=== PATIENT | female | born 1950 | race Caucasian/White ===

== ENCOUNTER 2016-03-27 12:09 | Day surgery (SDC) | payer BC ==
--- NOTE | ~2016-03-27 | OP ---
Record Of Operation [place] [id number] [facility] [place]. [address] NAME: MARLYS GOMES : 50 STATUS : REG [facility] [place] PAT#: [id number] AGE: 65 ADM/REG DATE : 03/27/16 MR#: [id number] REPORT SERV DATE: 03/28/16 DICTATED BY: YOLANDA RUIZ DATE: 03/27/16 REPORT STATUS : Draft TRANSCRIBED BY: MODL DATE: 03/27/16 DATE OF PROCEDURE: 03/27/2016 PREOPERATIVE DIAGNOSIS: 1. Malignant melanoma of the right distal arm above the elbow. This is a superficial spreading type, Félix's level 4, with a thickness of 1.67 mm. Epithelioid and spindle cell with mitotic rate of 3 mitoses per square mm, no ulceration, and associated dysplastic nevus. 2. History of malignant melanoma of the earliest stage, right distal forearm in the past. OPERATION: 1. Wide radical resection of malignant melanoma of the right distal arm lateral aspect above the elbow. 2. Intraoperative lymphatic mapping, injection of blue dye Lymphazurin. 3. Identification and excision of sentinel nodes of the right axilla x4. 4. Repair of soft tissue defect in layers. POSTOPERATIVE DIAGNOSES: 1. Malignant melanoma of the right distal arm above the elbow. This is a superficial spreading type, Félix's level 4, with a thickness of 1.67 mm. Epithelioid and spindle cell with mitotic rate of 3 mitoses per square mm, no ulceration, and associated dysplastic nevus. 2. History of malignant melanoma of the earliest stage, right distal forearm in the past. SURGEON: Yolanda Ruiz M.D. ASSOCIATED MEDICAL PROBLEMS: History of rheumatoid arthritis. APPLICATION SUPPORT TECHNICIAN: . ANESTHESIA: General via LMA. COMPLICATIONS: None. ESTIMATED BLOOD LOSS: Minimal. COUNTS: Correct. POSITION: Supine with the right arm extended. A time-out protocol enforced at the beginning. Time-out protocol enforced exit at the end of the case. SPECIMENS TO PATHOLOGY: 1. Skin and soft tissues of the right arm lateral aspect, up distal above the elbow area measures approximately 14 x 5 cm and include the skin and the underlying subcutaneous Record Of Operation [address] [place] [address] NAME: MARLYS GOMES : 50 STATUS : REG [facility] [place] PAT#: [id number] AGE: 65 ADM/REG DATE : 03/27/16 MR#: [id number] REPORT SERV DATE: 03/28/16 DICTATED BY: YOLANDA RUIZ DATE: 03/27/16 REPORT STATUS : Draft TRANSCRIBED BY: MODL DATE: 03/27/16 tissue. 2. [place] nodes of the right axilla x4. Counts documented. Informed consent obtained. EDUCATION: The patient was educated in management of melanoma. Preoperative evaluation including history and physical, laboratory analysis, and chest x-ray within normal limits. Medical clearance obtained from Dr. Remedios Andrews, primary care physician. We have planned to do a CT scan of chest, abdomen, and pelvis as initial staging. However, due to logistics that the patient preferred to proceed with wide excision and sentinel node biopsy as the initial step and that was scheduled today and accomplished today. We have deferred the CT at a later time after these steps have been completed. A preoperative lymphoscintigraphy was performed. Therefore, imaging was reviewed and shows a sentinel node with other secondary nodes in the area. She was identified preoperatively. Informed consent was signed. History and physical was updated. SUMMARY: She was brought to the operating room, placed supine, patient identified, procedure confirmed. A time-out protocol enforced prophylactic IV antibiotics given. The area of the melanoma was injected intradermally with 1 mL of isosulfan blue. We plan an elliptical longitudinal skin incision with mesh or approximately 2 cm margins in all directions taking into account the prior risk of the area to be resected measures approximately 14 x 5 cm and include the minimum of 2 cm margins in all directions. We initially performed the lymphoscintigraphy and the sentinel node biopsies. The right axilla was interrogated with the gamma probe, sentinel node was located. Radial activity detected. An incision made at level 1 into the axilla carried down into the underlying subcutaneous tissues and through the deeper planes of the axilla progressively, sequentially, a total of 4 separate sentinel nodes were identified. The main sentinel node was consistent with the preoperative lymphoscintigraphy with a height of radioactivity count. This node was enlarged measuring approximately minimum of 2.5 cm in diameter, appeared to be otherwise unremarkable but enlarged. This node was dissected free, isolated, and harvested intact. The lymphatic and blood vessels associated with these nodes were divided between hemoclips. The node was sent to pathology for analysis, permanent section. Separate, identifiable, mildly enlarged secondary sentinel nodes were identified, dissected free, harvested intact, and sent to pathology for analysis. All of them within level 1 or at the transition between level 1 and level 2 with any other suspicious features by inspection and palpation. Record Of Operation [place] [address] [place]. [address] NAME: MARLYS GOMES : 50 STATUS : REG [facility] [place] PAT#: [id number] AGE: 65 ADM/REG DATE : 03/27/16 MR#: [id number] REPORT SERV DATE: 03/28/16 DICTATED BY: YOLANDA RUIZ DATE: 03/27/16 REPORT STATUS : Draft TRANSCRIBED BY: KRISTY DATE: 03/27/16 The nodes contained blue discoloration as well as a pertinent significant radioactivity that was documented. The lymphatic vessels in the axilla were controlled with hemoclips and occasional ligatures of 3-0 Vicryl. After all 4 sentinel nodes were identified and removed, the axilla was inspected and palpated. No evidence of any other pathological adenopathy by inspection and palpation. The background count was minimal. The field was irrigated with normal saline solution. There was no evidence of any active bleeding. A small amount of hydrogen peroxide was also used as well as Arixtra to improve hemostasis. The dermis was approximated with interrupted sutures of 3-0 Vicryl. The skin with 3-0 Vicryl subcuticular. Sterile dressings were applied. We then proceeded to performing the wide elliptical excision, a minimum of 2 cm margins were measured in all directions. The incision was carried down through the full thickness of the underlying subcutaneous tissue and the superficial aponeurosis. The muscle was not disrupted. In a circumferential fashion, following the outline of the incision, the tissues were dissected from superficial to deep. Small superficial nerve branches were dissected free and preserved intact. A couple of branches going directly under the tumor were sacrificed. These were superficial small branches. Small veins were also divided and controlled, some of them with ligatures of 3-0 Vicryl, the other ones with hemoclips. The specimen was then progressively and slowly from the underlying muscles without any difficulties. All the other nerve branches in the area were preserved intact. The specimen was removed, oriented, labeled, and sent to pathology for analysis. The dermis was then approximated with multiple interrupted sutures of 3-0 Vicryl and 2 Vicryl interrupted. The skin with interrupted sutures of 3-0 nylon. Sterile dressings were applied. We used a silver impregnated occlusive dressing. The field was irrigated with 0.25% Marcaine for postoperative pain control. In both areas. We wrapped the arm with an Bart bandage. She has tolerated the procedure well. No complications. She was awakened at the end of anesthesia, remains in stable condition. An exit time-out protocol was enforced. No complications. Counts correct. The plan is to discharge her home and await final path report to make long-term therapeutic recommendations. She understood the benefits of long-term dermatological screening for life. was informed in detail. Record Of Operation [address] [place]. [address] NAME: GOMESARTISMARLYS HADLEY : 50 STATUS : REG [facility] [place] PAT#: [id number] AGE: 65 ADM/REG DATE : 03/27/16 MR#: [id number] REPORT SERV DATE: 03/28/16 DICTATED BY: YOLANDA RUIZ DATE: 03/27/16 REPORT STATUS : Draft TRANSCRIBED BY: KRISTY DATE: 03/27/16 KRISTOPHER/KRISTY Yolanda Ruiz M.D. / [id number] CC: Zeinab Solano M.D. Elizabeth M Simpson, M.D. Philip Andrews, NP
[~2016-03-27 12:09] MED LIST: AMIT50 PO; ATEN50 PO; HYDROCHLOROT12.5 MG PO; KLONO1 PO; LEXAPRO10 PO; LIPITOR40 PO; NEUR300 PO; PLAQ200B PO; PRILOSEC40 MG PO; RELPAX40 MG PO; ZANAFLEX 4 MG TA4 MG PO
[2016-03-27 16:52] LABS: HEMOGLOBIN 12.1 g/dL (12.0-16.0)
[2016-03-27 16:57] LABS: HEMATOCRIT 35.6 % (36.0-48.0)
[2016-03-27 17:03] LABS: BUN (BLOOD UREA NITROGEN) 10 MG/DL (6-23); CALCIUM, SERUM 8.6 MG/DL (8.5-10.4); CHLORIDE, SERUM 106 MMOL/L (96-112); CO2 (CARBON DIOXIDE) 27 MMOL/L (24-34); CREATININE 0.66 MG/DL (0.55-1.02); GFR AFRICAN AMERICAN 107 ML/MIN (>=60); GFR NON AFRICAN AMERICAN 93 ML/MIN (>=60); GLUCOSE, SERUM 85 MG/DL (60-99); POTASSIUM, SERUM 3.3 MMOL/L (3.5-5.3); SODIUM, SERUM 143 MMOL/L (135-148)
== END 2016-03-27 23:59 | disposition home or self-care (01) ==
LOC: SDC 12:09
PROVIDERS: Surgery
PROC: 07B50ZZ Excision of Right Axillary Lymphatic, Open Approach (ICD-10-PCS; 2016-03-27)
PROC: 0JQG0ZZ Repair Right Lower Arm Subcutaneous Tissue and Fascia, Open Approach (ICD-10-PCS; principal; 2016-03-27 16:45)
PROC: 0XB Anatomical Regions, Upper Extremities, Excision (ICD-10-PCS; 2016-03-27 16:45)
DX: C49.11 Malignant neoplasm of connective and soft tissue of right upper limb, including shoulder (principal); M06.9 Rheumatoid arthritis, unspecified; K21.9 Gastro-esophageal reflux disease without esophagitis; Z88.5 Allergy status to narcotic agent; Z79.899 Other long term (current) drug therapy
CPT/HCPCS: 78195; 80048; 85014; 85018; 88305; 88307; 88341; 88342; 93005; A9270-GY; A9541; J0690; J1170; J2250; J2405; J2550; J3010; Q9968